=== PATIENT | female | born 1995 | race Hispanic/Latino ===

== ENCOUNTER 2023-09-21 07:53 | Day surgery (SDC) | payer BC ==
[2023-09-19 16:19] VITALS: BMI 27.8
[2023-09-19 17:08] LABS: Hematocrit 40.9 % (34.9-44.5); Hemoglobin 13.6 g/dL (12.0-15.5); Mean Corpuscular HGB CONC 33.3 g/dL (32.0-36.0); Mean Corpuscular Hemoglobin 28.6 pg (27.0-33.0); Mean Corpuscular Volume 85.9 fl (81.6-98.3); Mean Platelet Volume 10.8 fl (7.4-10.4); Platelet Count 316 10x3/uL (150-450); Red Blood Cell (RBC) Count 4.76 10x6/uL (3.90-5.03); White Blood Cell (WBC) Count 8.5 10x3/uL (3.5-10.5)
[2023-09-19 17:30] LABS: BHCG - Serum Negative (NEGATIVE); Pregs Control Background? CLEAR/WHITE (CLR/WHITE); Pregs Control Bar Appear? YES (CONTROL BAR)
[2023-09-21] MEDS ORDERED: Gabapentin 300 MG CAP ONE (08:09)
[2023-09-21] MEDS ORDERED: Famotidine/PF 20 mg/2ml Vial ONE (08:10)
[2023-09-21] MEDS ORDERED: CeleCOXIB 100 MG CAP ONE (08:11)
[2023-09-21] MEDS ORDERED: Rocuronium Bromide 10 MG/ML (10ML VIAL) ONE (08:32)
[2023-09-21] MEDS ORDERED: PROPOFOL 20 ML ONE (08:32)
[2023-09-21] MEDS ORDERED: Lidocaine 1% PF 5 ML VIAL ONE (08:32)
[2023-09-21] MEDS ORDERED: Acetaminophen 500 MG TAB ONE (09:27)
[2023-09-21] MEDS ORDERED: Fentanyl 250 MCG/5 ML VIAL ONE (09:36)
[2023-09-21] MEDS ORDERED: Dexamethasone 4 mg/ml Vial ONE (09:37)
[2023-09-21] MEDS ORDERED: Ondansetron PF 4 MG/2 ML Vial ONE (09:37)
[2023-09-21] MEDS ORDERED: Bupivacaine PF 0.5% 30 ML VIAL ONE (09:38)
[2023-09-21] MEDS ORDERED: Sevoflurane 250 ML INH ANEST BOTTLE ONE (09:39)
[2023-09-21] MEDS ORDERED: CEFAZOLIN 2 GM VIAL ONE (10:01)
[2023-09-21] MEDS ORDERED: EPINEPHrine 1 MG/ML AMP ONE (10:31)
[2023-09-21] MEDS ORDERED: Glycopyrrolate 0.2 MG/ML 5 ML SYRINGE ONE (10:55)
[2023-09-21] MEDS ORDERED: oxyCODONE 5 MG TAB ONE (12:27)
== END 2023-09-21 16:20 | disposition home or self-care (01) ==
LOC: CSHSDC 07:53
PROVIDERS: ATTEND Student in an Organized Health Care Education/Training Program
PROC: 0UB04ZZ Excision of Right Ovary, Percutaneous Endoscopic Approach (ICD-10-PCS; principal; 2023-09-21)
DX: D27.0 Benign neoplasm of right ovary (principal); G89.18 Other acute postprocedural pain; Z79.899 Other long term (current) drug therapy
CPT/HCPCS: 36415; 84703; 85027; 86850; 86900; 86901; 88307; C1889; J0171; J1100; J2405; J2704; J3010; S0020; S0028